=== PATIENT | female | born 1975 ===

== ENCOUNTER 2020-12-12 16:19 | Emergency (ER) | payer MEDICAID, OTHER ==
[~2020-12-12] VITALS: Ht 157.5 cm; Wt 69.9 kg
[2020-12-12] MEDS ORDERED: TETANUS-DIPTH-ACEL PERTUSSIS 0.5ML SYR Tdap IM ONE (17:00)
[2020-12-12 17:08] VITALS: BP 130/64
== END 2020-12-12 17:53 | disposition home or self-care (01) ==
LOC: ER 16:19
DX: S51.812A Laceration without foreign body of left forearm, initial encounter (principal); F41.9 Anxiety disorder, unspecified; W26.8XXA Contact with other sharp object(s), not elsewhere classified, initial encounter; Y93.89 Activity, other specified; Y92.89 Other specified places as the place of occurrence of the external cause; Y99.8 Other external cause status
CPT/HCPCS: 12004; 73090; 90471; 90715

== ENCOUNTER 2020-12-26 12:17 | Emergency (ER) | payer MEDICAID ==
[~2020-12-26] VITALS: Ht 157.5 cm; Wt 68.0 kg
[2020-12-26 13:16] VITALS: BP 121/74
== END 2020-12-26 14:04 | disposition home or self-care (01) ==
LOC: ER 12:17
DX: S51.812D Laceration without foreign body of left forearm, subsequent encounter (principal); X58.XXXD Exposure to other specified factors, subsequent encounter